=== PATIENT | female | born 1985 | race Two or more races ===

== ENCOUNTER 2019-11-10 22:12 | Emergency (ER) | payer SELFPAY ==
[~2019-11-10] VITALS: Ht 160 cm; Wt 72.6 kg
[2019-11-10 22:20] VITALS: BP 146/91
--- NOTE | 2019-11-10 22:20 | NUR ---
ED Nurse Note: Pt brought into ED by MARTINEZ NICHOLSON 26 for c/o dizziness and vomiting x 2 days. Pt is aaox3, breathing is normal and unlabored, no cardiac distress noted. Pt denies drinking alcohol tonight, but smells of alcohol and has unsteady gait walking to restroom. Will continue to monitor.
--- NOTE | 2019-11-10 22:37 | NUR ---
ED Nurse Note: pt removed her IV site after blood work was drawn and meds were administered. pt refused EKG, ERMD notified
[2019-11-10 22:42] LABS: BASOPHILS % (AUTO) 1.3 % (0.0-2.0); EOSINOPHILS % (AUTO) 1.1 % (0.0-3.0); HEMATOCRIT 44.9 % (37.0-47.0); HEMOGLOBIN 14.7 G/DL (12.0-16.0); LYMPHOCYTES % (AUTO) 41.9 % (20.0-45.0); MEAN CORPUSCULAR VOLUME 89 FL (80-99); MONOCYTES % (AUTO) 3.3 % (1.0-10.0); NEUTROPHILS % (AUTO) 52.4 % (45.0-75.0); PLATELET COUNT 374 K/UL (150-450); RED BLOOD COUNT 5.03 M/UL (4.20-5.40); WHITE BLOOD COUNT 12.6 K/UL (4.8-10.8)
[2019-11-10 22:54] LABS: ANION GAP 16 mmol/L (5-15); BLOOD UREA NITROGEN 9 mg/dL (7-18); CALCIUM 8.8 MG/DL (8.5-10.1); CARBON DIOXIDE 20 MMOL/L (21-32); CHLORIDE 106 MMOL/L (98-107); CREATININE 0.6 MG/DL (0.55-1.30); POTASSIUM 3.9 MMOL/L (3.5-5.1); SODIUM 142 MMOL/L (136-145)
[2019-11-10 23:06] LABS: ALANINE AMINOTRANSFERASE 45 U/L (12-78); ALBUMIN 4.2 G/DL (3.4-5.0); ALKALINE PHOSPHATASE 82 U/L (46-116); ASPARTATE AMINO TRANSFERASE 33 U/L (15-37); BILIRUBIN,TOTAL 0.2 MG/DL (0.2-1.0)
--- NOTE | 2019-11-10 23:25 | NUR ---
ED Nurse Note: Pt able to ambulate with steady gait. Pt requesting to leave ED. ERMD aware.
[2019-11-10 23:30] VITALS: BP 140/75
--- NOTE | 2019-11-10 23:30 | NUR ---
ER DISCHARGE NOTE: Patient is cleared to be discharged per ERMD, pt is aox4, on room air, with stable vital signs. pt was given dc instructions, pt was able to verbalize understanding, pt id band and iv site removed without complications. pt is able to ambulate with steady gait. pt took all belongings.
--- NOTE | 2019-11-11 00:46 | Emergency Room Report ---
History of Present Illness General Chief Complaint: Dizziness Source: Patient, EMS Present Illness HPI 34-year-old female presents ED for evaluation. Brought in by EMS from Street. The patient appears unsteady. Patient states she feels dizzy. Vomiting. Per EMS patient smells like alcohol but patient denies alcohol use. Denies drug use. Denies abdominal pain. Denies chest pain. Denies headache. No other aggravating relieving factors. Denies any other associated symptoms Allergies: Coded Allergies: No Known Allergies (Unverified , 11/10/19) Patient History Past Medical History: none Past Surgical History: none Pertinent Family History: none Social History: Denies: smoking, alcohol use, drug use Now: No Immunizations: UTD Reviewed Nursing Documentation: PMH: Agreed; PSxH: Agreed Nursing Documentation-PMH Past Medical History: No Stated History Review of Systems All Other Systems: negative except mentioned in HPI Physical Exam Vital Signs Date Time Temp Pulse Resp B/P (MAP) Pulse Ox O2 Delivery O2 Flow Rate FiO2 11/10/19 22:17 98.6 100 18 146/91 (109) 100 Room Air Sp02 EP Interpretation: reviewed, normal General Appearance: no apparent distress, alert, GCS 15, non-toxic Head: normocephalic, atraumatic Eyes: bilateral eye normal inspection, bilateral eye PERRL ENT: hearing grossly normal, normal pharynx, no angioedema, normal voice Neck: full range of motion, supple/symm/no masses Respiratory: chest non-tender, lungs clear, normal breath sounds, speaking full sentences Cardiovascular #1: regular rate, rhythm, no edema Cardiovascular #2: 2+ carotid (R), 2+ carotid (L), 2+ radial (R), 2+ radial (L) , 2+ dorsalis pedis (R), 2+ dorsalis pedis (L) Gastrointestinal: normal bowel sounds, non tender, soft, non-distended, no guarding, no rebound Rectal: deferred Genitourinary: normal inspection, no CVA tenderness Musculoskeletal: back normal, normal range of motion, gait/station normal, non- tender Neurologic: alert, motor strength/tone normal, oriented x3, sensory intact, responsive, speech normal Psychiatric: judgement/insight normal, memory normal, mood/affect normal, no suicidal/homicidal ideation Reflexes: 3+ bicep (R), 3+ bicep (L), 3+ tricep (R), 3+ tricep (L), 3+ knee (R) , 3+ knee (L) Skin: no rash Lymphatic: no adenopathy Medical Decision Making Diagnostic Impression: Primary Impression: Alcohol intoxication Qualified Codes: F10.929 - Alcohol use, unspecified with intoxication, unspecified ER Course Hospital Course 34 yo F presents with dizziness, vomiting Differential diagnoses include: Psychosis, EtOH, arryhtmia Clinical course patient placed on stretcher. On threat monitoring analyst. After initial history and physical ordered labs, IV fluids, EKG patient declined EKG Labs reviewed-electrolytes okay, no leukocytosis, hemoglobin/hematocrit stable, ETOH > 300 And pulled out her IV. Refusing any additional work-up. Ambulating in ED. Encouraged to stay and rest. Patient is now steady on her gait. Ambulating without difficulty. Patient is ready to be discharged. Patient walks out prior to receiving her discharge papers i. I feel this is a highly complex case requiring extensive working including EKG/Rhythm strip, Xray/CT/US, Blood/urine lab work, repeat exams while in ED, and administration of strong opiates/narcotics for pain control, admission to hospital or close patient follow up. Diagnosis - alcohol intoxication Stable and discharged to home. Followup with PMD. Return to ED if symptoms recur or worsen Labs Test 11/10/19 22:30 White Blood Count 12.6 K/UL (4.8-10.8) Red Blood Count 5.03 M/UL (4.20-5.40) Hemoglobin 14.7 G/DL (12.0-16.0) Hematocrit 44.9 % (37.0-47.0) Mean Corpuscular Volume 89 FL (80-99) Mean Corpuscular Hemoglobin 29.3 PG (27.0-31.0) Mean Corpuscular Hemoglobin Concent 32.8 G/DL (32.0-36.0) Red Cell Distribution Width 12.0 % (11.6-14.8) Platelet Count 374 K/UL (150-450) Mean Platelet Volume 8.9 FL (6.5-10.1) Neutrophils (%) (Auto) 52.4 % (45.0-75.0) Lymphocytes (%) (Auto) 41.9 % (20.0-45.0) Monocytes (%) (Auto) 3.3 % (1.0-10.0) Eosinophils (%) (Auto) 1.1 % (0.0-3.0) Basophils (%) (Auto) 1.3 % (0.0-2.0) Sodium Level 142 MMOL/L (136-145) Potassium Level 3.9 MMOL/L (3.5-5.1) Chloride Level 106 MMOL/L (98-107) Carbon Dioxide Level 20 MMOL/L (21-32) Anion Gap 16 mmol/L (5-15) Blood Urea Nitrogen 9 mg/dL (7-18) Creatinine 0.6 MG/DL (0.55-1.30) Estimat Glomerular Filtration Rate > 60 mL/min (>60) Glucose Level 150 MG/DL (74-106) Calcium Level 8.8 MG/DL (8.5-10.1) Total Bilirubin 0.2 MG/DL (0.2-1.0) Aspartate Amino Transf (AST/SGOT) 33 U/L (15-37) Alanine Aminotransferase (ALT/SGPT) 45 U/L (12-78) Alkaline Phosphatase 82 U/L (46-116) Total Protein 8.3 G/DL (6.4-8.2) Albumin 4.2 G/DL (3.4-5.0) Globulin 4.1 g/dL Albumin/Globulin Ratio 1.0 (1.0-2.7) Salicylates Level 1.0 ug/mL (2.8-20) Acetaminophen Level < 2 MCG/ML (10-30) Serum Alcohol 313 mg/dL Last Vital Signs Date Time Temp Pulse Resp B/P (MAP) Pulse Ox O2 Delivery O2 Flow Rate FiO2 11/10/19 23:30 98.6 87 18 140/75 100 Room Air Status: improved Disposition: HOME, SELF-CARE Condition: Stable Scripts No Active Prescriptions or Reported Meds Referrals: NOT CHOSEN IPA/,REFERRING (PCP) [facility] Patient Instructions: Alcohol Intoxication, [id number] Sen Cain MD Nov 11, 2019 00:46
== END 2019-11-10 23:30 | disposition home or self-care (01) ==
LOC: EDBD 22:12 → EMR 22:55
DX: F10.929 Alcohol use, unspecified with intoxication, unspecified (principal); Y90.8 Blood alcohol level of 240 mg/100 ml or more
CPT/HCPCS: 36415; 80053; 85025; 96361; 96374; 99284; G0480; J2405; J7030